=== PATIENT | female | born 1980 | race Hispanic/Latino ===

== ENCOUNTER 2017-08-02 22:23 | Emergency (ER) | payer OTHER ==
[2017-08-02 22:30] VITALS: BP 122/88; RESP 18; TEMP 96.3
[2017-08-02] MEDS ORDERED: Dextrose 5%/0.45% NS 1,000 ML IV SCH (22:45)
--- NOTE | 2017-08-02 22:48 | ED PDOC ---
HPI: Psych/Substance Abuse Time Seen by Provider: 08/02/17 22:34 Chief Complaint (Nursing): Alcohol Ingestion Chief Complaint (Provider): Alcohol Intoxication History Per: Patient History/Exam Limitations: no limitations Current Symptoms Are (Timing): Still Present Suicide/Self Injury Attempted (Context): None Modifying Factor(s): Alcohol Additional Complaint(s): 37 y/o female presents to the emergency department by EMS for alcohol intoxication. As per ems the patient was found laying on the ground. Patient offers no medical complaints. Patient is accompanied by a sober friend in the ED. Past Medical History Reviewed: Historical Data, Nursing Documentation, Vital Signs Vital Signs: Last Vital Signs Temp 96.3 F L 08/02/17 22:26 Pulse 120 H 08/02/17 22:26 Resp 18 08/02/17 22:26 BP 122/88 08/02/17 22:26 Pulse Ox 96 08/02/17 22:26 - Medical History PMH: No Chronic Diseases - Surgical History Surgical History: No Surg Hx - Family History Family History: States: Unknown Family Hx - Allergies Allergies/Adverse Reactions: Allergies Allergy/AdvReac Type Severity Reaction Status Date / Time No Known Allergies Allergy Verified 08/02/17 22:26 Review of Systems ROS Statement: Except As Marked, All Systems Reviewed And Found Negative Constitutional: Positive for: Other (Alcohol intoxication) Physical Exam - Reviewed Nursing Documentation Reviewed: Yes Vital Signs Reviewed: Yes - Physical Exam Appears: Positive for: Well, No Acute Distress (alcohol on breath) Head Exam: Positive for: ATRAUMATIC, NORMAL INSPECTION Skin: Positive for: Normal Color, Warm, Dry. Negative for: Rash Eye Exam: Positive for: Normal appearance, EOMI, PERRL. Negative for: Nystagmus ENT: Positive for: Normal ENT Inspection Neck: Positive for: Normal, Painless ROM, Supple Cardiovascular/Chest: Positive for: Regular Rate, Rhythm, Chest Non Tender. Negative for: Tachycardia Respiratory: Positive for: Normal Breath Sounds. Negative for: Rales, Rhonchi, Wheezing, Respiratory Distress Gastrointestinal/Abdominal: Positive for: Normal Exam, Bowel Sounds, Soft. Negative for: Tenderness Back: Positive for: Normal Inspection. Negative for: L CVA Tenderness, R CVA Tenderness Extremity: Positive for: Normal ROM. Negative for: Tenderness, Deformity, Swelling Neurologic/Psych: Positive for: Alert (AAOx3), Oriented, Gait (unsteady) - ECG O2 Sat by Pulse Oximetry: 96 (RA) Pulse Ox Interpretation: Normal Medical Decision Making Medical Decision Makin Initial Impression 37 y/o female presenting with alcohol intoxication Initial Plan: * Alcohol serum * CMP * Drug Screen * CBC * Dextrose 1000ml IV 1000mls/hr * Accucheck * Reevaluation 2244 Patient is requesting to be discharged home. Diagnosis: Alcohol intoxication Documented by Alma Wells acting as a scribe for Chidi Pedersen MD. All medical record entries made by the Scribe were at my direction and personally dictated by me. I have reviewed the chart and agree that the record accurately reflects my personal performance of the history, physical exam, medical decision making, and the department course for this patient. I have also personally directed, reviewed, and agree with the discharge instructions and disposition. Disposition - Clinical Impression Clinical Impression: Alcohol abuse with intoxication - Disposition Disposition Time: 22:45 Condition: STABLE Instructions: Effects of Alcohol on Your Health Forms: [facility] (Lao)
[2017-08-02 22:55] VITALS: PULSE 110; O2SAT 100
== END 2017-08-02 23:05 | disposition home or self-care (01) ==
LOC: H.ER 22:23
DX: F10.129 Alcohol abuse with intoxication, unspecified (principal)